=== PATIENT | male | born 1955 | race Caucasian/White ===

== ENCOUNTER 2024-06-08 17:32 | Inpatient (IN) | payer OTHER, SELFPAY ==
[2024-06-08] VITALS (9 sets, daily range): BP systolic 93–119; BP diastolic 62–91; BMI 23.6
[2024-06-08 13:52] LABS: % Basophils 0.4 % (0-2); % Eosinophils 0.4 % (0-6); % Immature Granulocytes 0.5 % (0-0.5); % Lymphocytes 6.1 % (20.5-51.1); % Monocytes 3.1 % (1.7-9.3); % Neutrophils 89.5 % (42.2-75.2); Absolute Lymphocytes 0.5 10^3/uL (1.2-3.4); Absolute Monocytes 0.3 10^3/uL (0.1-0.6); Absolute Neutrophils 7.5 10^3/uL (1.4-6.5); Hematocrit 36.5 % (39.0-52.0); Mean Corp Hgb Conc. 32.9 g/dL (33.0-37.0); Mean Corpuscular Hgb 27.5 pg (27.0-31.0); Mean Corpuscular Volume 83.5 fL (80.0-94.0); Mean Platelet Volume 9.6 fL (7.4-10.4); Nucleated Red Blood Cells % 0 % (-); Platelet Count 285 10^3/uL (130-400); Red Blood Cell Count 4.37 10^6/uL (4.70-6.10); Red Cell Dist. Width 13.5 % (11.5-14.5); White Blood Cell Count 8.4 10^3/uL (4.8-10.8)
--- NOTE | 2024-06-08 13:54 | ED.GENMED ---
History of Present Illness
<Dina Mckeon SAFETY SEALER - Last Filed: 06/08/24 21:27>
General
Chief Complaint: Breathing Problem
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
Exam Limitations: dementia
Time Seen by Provider: 06/08/24 13:47
Nursing documentation reviewed up to this point in time: agreed with
History of Present Illness
History of Present Illness:
68-year-old male with history of dysphagia, seizures, TIA, traumatic brain injury, PE, HTN, HLD, BPH, UTIs, depression from [facility] for reportedly having a pulse ox of 85% on room air. O2 on arrival on 5L O2 NC is 96%. Pt is quiet, in no
distress, denies pain, SOB, cannot say where he is or why he is here.
Past History
<Dina Mckeon, SAFETY SEALER - Last Filed: 06/08/24 21:27>
Past History
ED Past Medical History: CVA (Hemorrhagic with aphasia), HTN, Hypercholesterolemia, Psychiatric (Depression, Psychosis) and Other (anemia, UTI, Brain injury, Chronic embolism,); Negative IDDM
ED Past Surgical History: Other (Unknown)
Social History
Tobacco: Non-smoker
Alcohol: None
Drug: None and Other
Personal: Single
Living: retirement
Employment: Not employed
Family History
Family History: Unable to obtain
Review of Systems
<Dina Mckeon, SAFETY SEALER - Last Filed: 06/08/24 21:27>
Review of Systems
Allergies reviewed?: Yes
Unable to obtain full review of systems at this time due to: other (TBI, aphasia, CVA)
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
All Other Systems: ROS reviewed and negative except as documented in HPI and ROS
Constitutional: Denies fever
Respiratory: Denies trouble breathing
Cardiac: Denies chest pain
ABD/GI: Denies abdominal pain, vomiting or diarrhea
: Reports incontinence; Denies dysuria or difficulty voiding
Musculoskeletal: Reports other (non ambulatory); Denies edema
Neurological: Denies headache
Phy Exam
<Dina Mckeon, SAFETY SEALER - Last Filed: 06/08/24 21:27>
Physical Exam
Physical Exam:
GENERAL: No acute distress. Alert, disoriented, aphasic
CONSTITUTIONAL: Afebrile.
EYES: PERRL, conjunctivae normal
ENMT: moist mucus membranes, Pharynx nl
RESPIRATORY: Regular respirations, nonlabored, lungs clear.
CARDIOVASCULAR: Regular rate and rhythm, no murmurs, no rubs.
GI: Soft, nontender, normal BS
MUSCULOSKELETAL: Bedridden, stiff/boardlike arms and legs/torso, heel protectors on, general muscle wasting and weakness, left foot contracture, no edema. Well perfused.
SKIN: Warm, dry, pale
PSYCH: Depressed mood and affect. Well kept, interactive not oriented to place, year, events
NEUROLOGIC: Awake, alert and oriented x 1. Follows commands, speech clear.
Scores
<Dina Mckeon, SAFETY SEALER - Last Filed: 06/08/24 21:27>
Heart Failure Risk
Heart Failure Risk Score: Not Applicable
Sepsis
<Dina Mckeon, SAFETY SEALER - Last Filed: 06/08/24 21:27>
Sepsis Screening
Sepsis Assessment: Sepsis Ruled Out
Sepsis Screen
Sepsis Screen: Sepsis Ruled Out
Date: 06/08/24
Time: 21:27
Course
<Dina cMkeon, SAFETY SEALER - Last Filed: 06/08/24 21:27>
Orders/Labs/Results
Orders:
Orders
06/08/24 13:30
EKG [Electrocardiogram (*1)] Urgent
Reason for Study: Shortness of Breath
EKG- Treatment ONCE
06/08/24 13:43
COVID-19 Antigen Urgent
Source: Nasal Swab
Complete Blood Count/With Diff Urgent
Comprehensive Metabolic Panel Urgent
INF RAPID [Influenza A+B Rapid Molecular] Urgent
IRINA Source: Nasal Swab
Specimen Description:
06/08/24 13:54
CR Chest - 2 Views Urgent
Comment:
Reason For Exam: reported low O2 at NH
06/08/24 Dinner
Regular
At Your Request: Limited, Bilingual Teacher Assistant Required
06/08/24 16:55
Add On- LAB Urgent
Tests Added?: BNP
Nursing to Place Non Medication Order As Directed
Physician Order: please TT me when d-dimer results
Above order entered?: Yes
06/08/24 16:59
Admit/Transfer Patient As Directed
Co-Sign Provider:
Level of Care: Inpatient admission
Assign to:: Telemetry
Physician / Group: Gillian Barajas
Diagnosis: hypoxia
Reason for Telemetry: Chest Pain syndromes
Date to Stop Telemetry: 06/10/24
Time to Stop Telemetry: 11:00
Reason for Hospitalization: hypoxic respiratory insufficiency
Expected length of stay greater than two midnights?: Yes
ELOS- Estimated Length of Stay in days: 3
I certify the patient meets the requirements for IP care: Yes
06/08/24 17:00
PRN Pain Medication Management As Directed
May give lesser potent ordered pain med per pt: Yes
preference::
Protocol:: Medication orders for pain may be administered in a
manner that supports deferring to patient preference
when the pt is:
- Requesting an ordered lesser potent pain medication.
Least to most potent pain medications are defined
as: acetaminophen < NSAID < tramadol < opioids
(morphine, oxycodone, hydromorphone).
- Requesting a lesser dose of the same medication IF
ORDERED.
- Requesting a less intrusive route of administration
if both routes are prescribed by the provider (PO <
IV).
06/08/24 17:01
Code Status As Directed
Resuscitation Status: Full Code
06/08/24 17:20
D-Dimer Urgent
NT-proBNP Routine
Comment: BNP ADDED ON BY FLOOR 5PM 06-08-24
Procalcitonin Urgent
PCT Algorithmm Indication: Respiratory
Troponin I Q6H
06/08/24 19:24
0.45% Sodium Chloride 1000 ml [0.45%NaCl] 1,000 ml IV 60 mls/hr
Acetaminophen [Tylenol] 650 mg PO Q4HPRN PRN
Atorvastatin [Lipitor] 10 mg PO QPM
Bisacodyl [Dulcolax] 10 mg RECTAL [id number] PRN
Docusate Sodium [Colace] 200 mg PO QPM
Phosphate Enema [Fleet Phosphate Enema-Adult] 135 ml RECTAL DAILYPRN PRN
Tamsulosin [Flomax] 0.4 mg PO QPM
06/08/24 19:24
Activity As Directed
Activity Level: As Tolerated
Vital Signs As Directed
Frequency: Per unit guidelines
Incentive Spirometry [Rx Incentive Spirometry] [RESP] Routine
Frequency: q1h while awake
Rx Incentive Spirometry [RESP] Routine
Frequency: q1h while awake
06/08/24 20:00
Levetiracetam [Keppra] 250 mg PO BID
Levetiracetam [Keppra] 500 mg PO BID
Lorazepam [Ativan] 0.25 mg PO BID
Propranolol [Inderal] 20 mg PO BID
06/08/24 21:00
Apixaban [Eliquis] 2.5 mg PO BID
06/08/24 22:00
Baclofen [Lioresal] 20 mg PO TID
Sennosides [Senokot] 17.2 mg PO HS
06/08/24 23:00
Troponin I Q6H
06/09/24 05:00
Troponin I Q6H
06/09/24 06:00
Echo 2D MMode Color/Doppler IN AM
Reason for Study: hypoxia
Basic Metabolic Panel IN AM
Complete Blood Count/With Diff IN AM
Magnesium IN AM
TSH IN AM
Vitamin B12 IN AM
06/09/24 08:00
Citalopram [Celexa] 20 mg PO DAILY
06/10/24 11:00
DC Protocol for Telemetry ONCE
Abnormal Lab Results
06/08/24
13:43
RBC 4.37 L 10^6/uL
(4.70-6.10)
Hgb 12.0 L g/dL
(13.0-18.0)
Hct 36.5 L %
(39.0-52.0)
MCHC 32.9 L g/dL
(33.0-37.0)
Absolute Neuts (auto) 7.5 H 10^3/uL
(1.4-6.5)
Absolute Lymphs (auto) 0.5 L 10^3/uL
(1.2-3.4)
Neutrophils % 89.5 H %
(42.2-75.2)
Lymphocytes % 6.1 L %
(20.5-51.1)
Sodium 146 H mmol/L
(135-145)
BUN 23 H mg/dl
(9-20)
Creatinine 0.6 L mg/dL
(0.7-1.3)
Glucose 161 H mg/dl
(70-99)
06/08/24 13:43
06/08/24 13:43
Vital Signs
Initial and Last Documented VS:
Initial Vital Signs
Temp Pulse Resp Pulse Ox
99.7 F 85 17 95
06/08/24 13:29 06/08/24 13:29 06/08/24 13:29 06/08/24 13:29
Last Documented Vital Signs
Temp Pulse Resp BP Pulse Ox
99.5 F 83 16 118/75 96
06/08/24 19:48 06/08/24 19:48 06/08/24 19:48 06/08/24 19:48 06/08/24 19:48
<Omar Saini PA-C - Last Filed: 06/08/24 16:13>
Orders/Labs/Results
Orders:
Orders
06/08/24 13:30
EKG [Electrocardiogram (*1)] Urgent
Reason for Study: Shortness of Breath
EKG- Treatment ONCE
06/08/24 13:43
COVID-19 Antigen Urgent
Source: Nasal Swab
Complete Blood Count/With Diff Urgent
Comprehensive Metabolic Panel Urgent
INF RAPID [Influenza A+B Rapid Molecular] Urgent
IRINA Source: Nasal Swab
Specimen Description:
06/08/24 13:54
CR Chest - 2 Views Urgent
Comment:
Reason For Exam: reported low O2 at NH
06/08/24 Dinner
Regular
At Your Request: Limited, Bilingual Teacher Assistant Required
06/08/24 16:55
Add On- LAB Urgent
Tests Added?: BNP
Nursing to Place Non Medication Order As Directed
Physician Order: please TT me when d-dimer results
Above order entered?: Yes
06/08/24 16:59
Admit/Transfer Patient As Directed
Co-Sign Provider:
Level of Care: Inpatient admission
Assign to:: Telemetry
Physician / Group: Gillian Barajas
Diagnosis: hypoxia
Reason for Telemetry: Chest Pain syndromes
Date to Stop Telemetry: 06/10/24
Time to Stop Telemetry: 11:00
Reason for Hospitalization: hypoxic respiratory insufficiency
Expected length of stay greater than two midnights?: Yes
ELOS- Estimated Length of Stay in days: 3
I certify the patient meets the requirements for IP care: Yes
06/08/24 17:00
PRN Pain Medication Management As Directed
May give lesser potent ordered pain med per pt: Yes
preference::
Protocol:: Medication orders for pain may be administered in a
manner that supports deferring to patient preference
when the pt is:
- Requesting an ordered lesser potent pain medication.
Least to most potent pain medications are defined
as: acetaminophen < NSAID < tramadol < opioids
(morphine, oxycodone, hydromorphone).
- Requesting a lesser dose of the same medication IF
ORDERED.
- Requesting a less intrusive route of administration
if both routes are prescribed by the provider (PO <
IV).
06/08/24 17:01
Code Status As Directed
Resuscitation Status: Full Code
06/08/24 17:20
D-Dimer Urgent
NT-proBNP Routine
Comment: BNP ADDED ON BY FLOOR 5PM 06-08-24
Procalcitonin Urgent
PCT Algorithmm Indication: Respiratory
Troponin I Q6H
06/08/24 19:24
0.45% Sodium Chloride 1000 ml [0.45%NaCl] 1,000 ml IV 60 mls/hr
Acetaminophen [Tylenol] 650 mg PO Q4HPRN PRN
Atorvastatin [Lipitor] 10 mg PO QPM
Bisacodyl [Dulcolax] 10 mg RECTAL [id number] PRN
Docusate Sodium [Colace] 200 mg PO QPM
Phosphate Enema [Fleet Phosphate Enema-Adult] 135 ml RECTAL DAILYPRN PRN
Tamsulosin [Flomax] 0.4 mg PO QPM
06/08/24 19:24
Activity As Directed
Activity Level: As Tolerated
Vital Signs As Directed
Frequency: Per unit guidelines
Incentive Spirometry [Rx Incentive Spirometry] [RESP] Routine
Frequency: q1h while awake
Rx Incentive Spirometry [RESP] Routine
Frequency: q1h while awake
06/08/24 20:00
Levetiracetam [Keppra] 250 mg PO BID
Levetiracetam [Keppra] 500 mg PO BID
Lorazepam [Ativan] 0.25 mg PO BID
Propranolol [Inderal] 20 mg PO BID
06/08/24 21:00
Apixaban [Eliquis] 2.5 mg PO BID
06/08/24 22:00
Baclofen [Lioresal] 20 mg PO TID
Sennosides [Senokot] 17.2 mg PO HS
06/08/24 23:00
Troponin I Q6H
06/09/24 05:00
Troponin I Q6H
06/09/24 06:00
Echo 2D MMode Color/Doppler IN AM
Reason for Study: hypoxia
Basic Metabolic Panel IN AM
Complete Blood Count/With Diff IN AM
Magnesium IN AM
TSH IN AM
Vitamin B12 IN AM
06/09/24 08:00
Citalopram [Celexa] 20 mg PO DAILY
06/10/24 11:00
DC Protocol for Telemetry ONCE
Abnormal Lab Results
06/08/24
13:43
RBC 4.37 L 10^6/uL
(4.70-6.10)
Hgb 12.0 L g/dL
(13.0-18.0)
Hct 36.5 L %
(39.0-52.0)
MCHC 32.9 L g/dL
(33.0-37.0)
Absolute Neuts (auto) 7.5 H 10^3/uL
(1.4-6.5)
Absolute Lymphs (auto) 0.5 L 10^3/uL
(1.2-3.4)
Neutrophils % 89.5 H %
(42.2-75.2)
Lymphocytes % 6.1 L %
(20.5-51.1)
Sodium 146 H mmol/L
(135-145)
BUN 23 H mg/dl
(9-20)
Creatinine 0.6 L mg/dL
(0.7-1.3)
Glucose 161 H mg/dl
(70-99)
06/08/24 13:43
06/08/24 13:43
Vital Signs
Initial and Last Documented VS:
Initial Vital Signs
Temp Pulse Resp Pulse Ox
99.7 F 85 17 95
06/08/24 13:29 06/08/24 13:29 06/08/24 13:29 06/08/24 13:29
Last Documented Vital Signs
Temp Pulse Resp BP Pulse Ox
99.5 F 83 16 118/75 96
06/08/24 19:48 06/08/24 19:48 06/08/24 19:48 06/08/24 19:48 06/08/24 19:48
<Dina Mckeon SAFETY SEALER - Last Filed: 06/08/24 21:27>
MDM/Problems Addressed
Differential Diagnosis Includes:
Covid, PNA, URI
MDM/Problems Addressed:
68-year-old male with history of dysphagia, seizures, TIA, traumatic brain injury, PE, HTN, HLD, BPH, UTIs, depression from [facility] point for reportedly having a pulse ox of 85% on room air. O2 on arrival on 5L O2 NC is 96%. Pt is quiet, in no
distress, denies pain, SOB, cannot say where he is or why he is here.
EKG: NSR
Off O2 for 5 minutes O2 dropped to 85% RA, placed back on 5L NC to 95%
Respirations even, non labored
3:15 p.m.
CBC with no clinically significant abnormality
CMP with no clinically significant abnormality
COVID-negative
Flu neg
<Dina Mckeon SAFETY SEALER - Last Filed: 06/08/24 21:27>
*Critical Care Note
Total Time (30-74mins, 75-104mins- exclusive of procedures): Not Applicable
<Omar Saini PA-C - Last Filed: 06/08/24 16:13>
Update Note
Update Note:
Received care of patient upon pending chest x-ray. Chest x-ray reveals hyperinflated lungs with atelectasis. He is coughing throughout my exam. Requiring 4 L of oxygen. He is anticoagulated on Eliquis. Do not suspect PE. Admit to hospital for
hypoxia
ED Attending Note
<Dina Mckeon SAFETY SEALER - Last Filed: 06/08/24 21:27>
-
Portions of this chart may have been created with voice recognition software.� Occasional wrong word or��sound alike� substitutions may have occurred due to the inherent limitations of voice recognition software.
Discharge Plan
Departure
Patient Disposition: Admit
Date of Disposition: 06/08/24
Time of Disposition: 16:13
Admit to: Telemetry
Presentation/result/management discussed w/ accepting MD/DO: Hospitalist
Discharge Problem:
Hypoxia
Interventions
Interventions:
*Risk Screen - Suicide Last Done: 06/08/24 15:05
*General Assessment Last Done: 06/08/24 14:31
*Neglect/Abuse Screening Last Done: 06/08/24 14:31
ED- Fall Risk Assessment Last Done: 06/08/24 19:06
*ED COVID-19 Vaccine History Last Done: 06/08/24 14:31
*Nursing Disposition Last Done: 06/08/24 19:06
ED- Cardiac Assessment Last Done: 06/08/24 14:35
ED- Pulmonary Assessment Last Done: 06/08/24 14:35
Discharge Date and Time
Discharge Date/Time: 06/08/24 19:07
[2024-06-08 14:11] LABS: ALT (SGPT) 24 U/L (0-50); AST (SGOT) 23 U/L (17-59); Albumin 3.7 g/dl (3.5-5.0); Alkaline Phosphatase 65 U/L (38-126); Blood Urea Nitrogen 23 mg/dl (9-20); Calcium 9.2 mg/dl (8.4-10.2); Carbon Dioxide 30 mmol/L (22-30); Chloride 105 mmol/L (98-107); Glucose 161 mg/dl (70-99); Potassium 3.9 mmol/L (3.5-5.1); Sodium 146 mmol/L (135-145); Total Bilirubin 0.6 mg/dl (0.2-1.3); Total Protein 7.1 g/dl (6.3-8.2); eGFR > 60.00
[2024-06-08 14:14] LABS: COVID-19 Antigen Negative (Negative)
--- NOTE | 2024-06-08 16:18 | HPS.HSE ---
Family Physician
-
Family Physician: Jesse Urrutia
Chief Complaint
-
low oxygen
History of Present Illness
Mr. 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
Patient unable to provide elaborate history. He states everything hurts and he has felt short of breath for a while.
Medical History
Past Medical History
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
Past Surgical History: Reports Other
Social History
Unable to obtain full social history at this time due to: Other (patient with aphasia )
Family History
Family History: Not pertinent
Allergies / Home Medications
Allergies reflects when Allergies were last updated in [facility].
Home Medications with original date entered in [facility]
Allergy/Medication List:
Allergies
Allergy/AdvReac Type Severity Reaction Status Date / Time
basil Allergy Unknown Verified 04/18/20 12:37
iodine Allergy Unknown Verified 04/18/20 12:37
shellfish derived Allergy Unknown Verified 04/18/20 12:37
Home Medications
atorvastatin 10 mg tablet 10 mg PO QPM High cholesterol 04/24/15
bisacodyl 10 mg rectal suppository (OneLAX Bisacodyl) 10 mg MD DAILYPRN PRN if MOM ineffective in 24h 04/24/15
docusate sodium 100 mg capsule 200 mg PO QPM Constipation 04/24/15
magnesium hydroxide 400 mg/5 mL oral suspension 30 ml PO [id number] PRN no bm in 3 days 04/24/15
tamsulosin 0.4 mg capsule 0.4 mg PO QPM Urinary issue 04/24/15
apixaban 2.5 mg tablet (Eliquis) 2.5 mg PO BID Blood clot prevention/tx 06/11/19
acetaminophen 325 mg tablet 650 mg PO Q4HPRN PRN mild pain/temp>100 03/11/20
baclofen 20 mg tablet 20 mg PO TID Muscle spasms 03/11/20
citalopram 20 mg tablet 20 mg PO DAILY Depression 03/11/20
sennosides 8.6 mg tablet (senna) 2 tab PO HS Gastrointestinal issue 03/11/20
levetiracetam 500 mg tablet 500 mg PO BID 03/15/20
emollient combination no.119 (Eucerin Advanced Repair topical cream) 1 applic topical DAILY dry skin 06/08/24
levetiracetam 250 mg tablet 250 mg PO BID 06/08/24
lorazepam 0.5 mg tablet 0.25 mg PO BID 06/08/24
propranolol 20 mg tablet 20 mg PO BID 06/08/24
pyrithione zinc 1 % shampoo 1 applic topical WESA 06/08/24
sodium phosphates 19 gram-7 gram/118 mL enema (Fleet Enema) 118 ml MD DAILYPRN PRN if dulcolax ineffective after 24 hrs 06/08/24
Review of Systems
-
History Source: Patient
A 12 point ROS was completed and negative except as noted: Yes
Physical Exam
Vital Signs
Vital Signs
Temp Pulse Resp BP Pulse Ox
99.7 F 61 14 93/62 96
06/08/24 13:29 06/08/24 15:30 06/08/24 15:30 06/08/24 15:00 06/08/24 15:30
Physical Exam
General: Other (patient frail appearing, mildly diaphoretic and tachypneic )
HEENT: PERRLA
Respiratory: Other (decreased breath sounds at bases ); No Wheezes
Cardiac: S1/S2 and Regular Rhythm
GI: Soft and Non Tender
Musculoskeletal: No Edema and Other (contractures )
Neuro: Awake and Alert; No Oriented
Psych: Calm
Laboratory Results
-
06/08/24 13:43
06/08/24 13:43
Laboratory Results
Total Bilirubin 0.6 mg/dl (0.2-1.3) 06/08/24 13:43
AST 23 U/L (17-59) 06/08/24 13:43
ALT 24 U/L (0-50) 06/08/24 13:43
Alkaline Phosphatase 65 U/L (38-126) 06/08/24 13:43
Data Reviewed
-
Diagnostic Radiology: Report Reviewed by me
Lab Data: Labs Reviewed by me
Impression/Plan
-
Mr. 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
Triage VS: T 99.7, P 85, RR 17, SpO2 95%
LABS: WBC 8.4, Hg 12.0, PLT 285, Na 146, K+ 3.9, BUN 23, Cr 0.6, Glucose 161, liver enzymes WNL
covid nevative
CXR
IMPRESSION:
Both lungs appear hypoinflated. Parenchymal opacity both lower lungs, likely atelectasis.
Hypoxic Respiratory Insufficiency
-unclear etiology; CXR with hypoinflation; atelectasis likely contributing. Patient with hx PE, he is on Eliquis low dose for prophylaxis.
-Will obtain d-dimer, pro-thalia, BNP, Troponin
-TTE tomorrow
-admit to telemetry
-O2 support as needed
-IS
-no wheezing on exam
-if above not revealing, may require pulmonary consult
Hx TBI
Hx CVA
Functional Quadriplegia
Expressive Aphasia
-EMPLOYMENT INSTRUCTIONAL ASSOCIATE lipitor
-EMPLOYMENT INSTRUCTIONAL ASSOCIATE Baclofen
Hx PE
-EMPLOYMENT INSTRUCTIONAL ASSOCIATE Eliquis, work-up as above
Seizures
-EMPLOYMENT INSTRUCTIONAL ASSOCIATE Keppra
BPH
-EMPLOYMENT INSTRUCTIONAL ASSOCIATE Flomax
Anxiety/Depression
-EMPLOYMENT INSTRUCTIONAL ASSOCIATE Ativan, Citalopram, Propranolol
Constipation
-EMPLOYMENT INSTRUCTIONAL ASSOCIATE Regimen
DVT PPx Eliquis
FULL CODE
76 MINUTES spent on patient care
[2024-06-08 17:43] LABS: D-Dimer 0.34 ug/mlFEU (0.00-0.50)
[2024-06-08 17:55] LABS: NT-proBNP 185 pg/ml; Troponin I < 0.012 ng/ml
[2024-06-08 18:05] LABS: Procalcitonin < 0.05 ng/ml (0.0-0.25)
--- NOTE | 2024-06-08 20:00 | PTCARENOTE ---
Received pt from ED via stretcher. Telemetry orders> Sinus Rhythm on monitor, T 99.5, HR 83, RR 16, BP 118/75, pox 96% 5LNC. No c/o pain.
Pt grossly incontinent- CC #30 placed. Tubigrips removed from B/L LEs for skin assessment. Multi scab and opens areas that appear to be from scratching. Heels intact, booties in place. Pt's buttocks blanchable red w/ scratches. Barrier ointment
applied, placed on Q2T. Tubigrips removed from pt's arms, intact. PMH history and medications obtained from fpc report. Bed alarm in place.
[2024-06-08] MEDS: 0.45%NACL 1000 IV (20:10)
[2024-06-08] MEDS: FLOMAX 0.4 MG PO (21:31)
[2024-06-08] MEDS: KEPPRA 250 MG PO (21:31)
[2024-06-08] MEDS: LIPITOR 10 MG PO (21:31)
[2024-06-08] MEDS: ATIVAN 0.25 MG PO (21:36)
[2024-06-08] MEDS: ELIQUIS 2.5 MG PO (21:37)
[2024-06-08] MEDS: KEPPRA 500 MG PO (21:37)
[2024-06-08] MEDS: COLACE 200 MG PO (21:37)
[2024-06-08] MEDS: INDERAL 20 MG PO (21:37)
[2024-06-08] MEDS: SENOKOT 17.2 MG PO (21:38)
[2024-06-08] MEDS: LIORESAL 20 MG PO (21:47)
[2024-06-09 03:31] VITALS: BP 109/76
[2024-06-09 07:00] VITALS: BP 107/64
[2024-06-09 08:09] LABS: % Basophils 0.2 % (0-2); % Eosinophils 1.7 % (0-6); % Immature Granulocytes 0.6 % (0-0.5); % Lymphocytes 14.2 % (20.5-51.1); % Monocytes 3.8 % (1.7-9.3); % Neutrophils 79.5 % (42.2-75.2); Absolute Eosinophils 0.2 10^3/uL (0-0.7); Absolute Immature Granulocytes 0.1 10^3/uL (0-0.05); Absolute Lymphocytes 1.3 10^3/uL (1.2-3.4); Absolute Monocytes 0.3 10^3/uL (0.1-0.6); Hematocrit 32.6 % (39.0-52.0); Hemoglobin 10.4 g/dL (13.0-18.0); Mean Corp Hgb Conc. 31.9 g/dL (33.0-37.0); Mean Corpuscular Hgb 27.2 pg (27.0-31.0); Mean Corpuscular Volume 85.1 fL (80.0-94.0); Mean Platelet Volume 9.7 fL (7.4-10.4); Nucleated Red Blood Cells % 0 % (-); Platelet Count 249 10^3/uL (130-400); Red Blood Cell Count 3.83 10^6/uL (4.70-6.10); Red Cell Dist. Width 13.7 % (11.5-14.5); White Blood Cell Count 8.8 10^3/uL (4.8-10.8)
[2024-06-09] MEDS: KEPPRA 500 MG PO ×2 (08:26→19:49)
[2024-06-09] MEDS: KEPPRA 250 MG PO ×2 (08:26→19:49)
[2024-06-09] MEDS: CELEXA 20 MG PO (08:26)
[2024-06-09] MEDS: ELIQUIS 2.5 MG PO ×2 (08:26→19:48)
[2024-06-09] MEDS: ATIVAN 0.25 MG PO ×2 (08:26→19:50)
[2024-06-09] MEDS: INDERAL 20 MG PO ×2 (08:27→19:48)
[2024-06-09] MEDS: LIORESAL 20 MG PO ×3 (08:29→21:47)
[2024-06-09 09:13] LABS: Blood Urea Nitrogen 18 mg/dl (9-20); Calcium 8.5 mg/dl (8.4-10.2); Carbon Dioxide 29 mmol/L (22-30); Chloride 104 mmol/L (98-107); Estimated Creatinine Clearance 99 ml/min; Glucose 88 mg/dl (70-99); Magnesium 1.9 mg/dl (1.6-2.3); Potassium 3.6 mmol/L (3.5-5.1); Sodium 142 mmol/L (135-145); eGFR > 60.00
[2024-06-09 09:41] LABS: TSH 1.06 uIU/ml (0.47-4.68)
--- NOTE | 2024-06-09 09:54 | W.PN.HOSP.TC ---
Today's Communication/Plan
-
O2 being weaned down, suspect aspiration event? awaiting ST Eval
awaiting TTE
IS as able (cognitive impairment makes difficult)
Assessment / Plan
Assessment / Plan
Mr. Gerald London is a 68 yo man, [place] resident at 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
CXR
IMPRESSION:
Both lungs appear hypoinflated. Parenchymal opacity both lower lungs, likely atelectasis.
Hypoxic Respiratory Insufficiency
-unclear etiology; CXR with hypoinflation; atelectasis likely contributing; concern also for aspiration event? no wheezing on exam; Patient with hx PE, he is on Eliquis low dose for prophylaxis and d-dimer negative. BNP low. Troponin negative and
procal negative
-Oxygen supplementation weaned overnight
-F/U TTE
-F/U ST Eval
-continue to wean O2 as able
Hx TBI
Hx CVA
Functional Quadriplegia
Expressive Aphasia
-ARCHITECT INTERN lipitor
-ARCHITECT INTERN Baclofen
Hx PE
-ARCHITECT INTERN Eliquis
Seizures
-ARCHITECT INTERN Keppra
BPH
-ARCHITECT INTERN Flomax
Anxiety/Depression
-ARCHITECT INTERN Ativan, Citalopram, Propranolol
Constipation
-ARCHITECT INTERN Regimen
DVT PPx Eliquis
FULL CODE
51 minutes spent on patient care
*attempted to get in touch with contacts in chart and no answer
Anticipated Discharge: 24 - 48 hours
Subjective/Interval History
-
Date of Service: June 09, 2024
no new complaints
denies pain
states he's feeling better
Objective Data
-
Labs:
Laboratory Results
06/09/24
07:17
WBC 8.8
Hgb 10.4 L
Hct 32.6 L
Plt Count 249
Sodium 142
Potassium 3.6
Chloride 104
Carbon Dioxide 29
BUN 18
Creatinine 0.4 L
Glucose 88
Calcium 8.5
Vital Signs:
Vital Signs
Temp Pulse Resp BP Pulse Ox
98.4 F 59 16 109/76 98
06/09/24 07:00 06/09/24 07:00 06/09/24 07:00 06/09/24 08:27 06/09/24 07:00
I&O
06/08/24 06/09/24 06/10/24
06:59 06:59 06:59
Intake Total 1140 / 1140
Balance 1140 / 1140
Review of Systems
-
Unable to obtain full review of systems at this time due to: Other (expressive aphasia - baseline )
History Source: Patient
Physical Exam
-
General: No Apparent Distress and Appears Chronically Ill
HEENT: PERRLA
Respiratory: Clear to Auscultation; Negative Wheezes
Cardiac: S1/S2
GI: Soft and Nontender
Musculoskeletal: No Edema and Other (contractures )
Skin: Warm and Dry; Negative Rash
Neuro: Awake, Alert and Other (able to answer simple short answers; + expressive aphasia )
Psych: Calm
Data Reviewed
-
Diagnostic Radiology: Report Reviewed by me
Labs: Labs Reviewed by me
[2024-06-09 10:00] LABS: Vitamin B12 700 pg/ml (239-931)
[2024-06-09 11:00] VITALS: BP 98/63
--- NOTE | 2024-06-09 11:24 | PTOTSP ---
ST Acute Care Evaluation
Pt currently presents with clinical symptoms of mild oropharyngeal dysphagia characterized by impulsivity with reduced insight to deficits and safety precautions resulting in taking large bites/sips and rapid intake prior to completing prior intake,
prolonged mastication, reduced bolus formation requiring liquid aid, and audible aerophagia indicative of possibly reduced breathing/swallowing coordination. Although no overt s/s of penetration or aspiration were noted at bedside during this
evaluation, pt is at an elevated risk due to his clinical signs of oral apraxia, reduced cognitive linguistic function, reduced insight to deficits, as well as reduced ability to monitor self and/or implement safety precautions independently.
Recommendations:
- DOWNGRADE to SOFT BITE SIZED SOLIDS and continue with THIN LIQUIDS - SINGLE SIPS; meds whole in puree.
- Aspiration precautions: FULL SUPERVISION with all PO intake; fully awake, alert, and upright for all PO intake; small bites - finish each bite prior to taking a new bite; single sips - do not let him chug his drinks; alternate solids/liquids; slow
rate of intake.
- HOUSEHOLD REFRIGERATION MECHANIC to f/u re: diet tolerance and airway protection as well as to determine whether pt would benefit from an instrumental swallow study.
- Consider investigating baseline cognitive linguistic function to ensure pt is currently at baseline.
--- NOTE | 2024-06-09 14:08 | PTCARENOTE ---
attempt to wean oxygen to RA, Patient O2 sat 85% on RA nad pt c/o of SOB. 1L NC placed with O2 sat. 92% will continue to monitor.
[2024-06-09 15:00] VITALS: BP 99/60
--- NOTE | 2024-06-09 15:12 | CM ---
Pt is a LTC resident from [facility].
Per nurse, Freddy/Shannan, pt is total care and stays in his geriatric chair w/ cushion to prevent him from falling forward. Pt also has kavon lift.
Pt does not feed himself. He is considered a feeder per Freddy
Due to pt's physical limitations from stroke, his responses are delayed when communicating, not necessarily confused. This is pt's BL per Freddy
Freddy declines home O2. Currently on 2L in hospital
Per pt he had OP rehab at [facility] in the past
Plan: Return to [facility]
CM will cont. following for d/c needs
--- NOTE | 2024-06-09 16:00 | PTCARENOTE ---
patient had 10 beat run of VTACH. pt resting in bed. asymptomatic. MD Barajas notified. no new orders at this time. will continue to monitor.
[2024-06-09] MEDS: LIPITOR 10 MG PO (17:11)
[2024-06-09] MEDS: COLACE 200 MG PO (17:11)
[2024-06-09] MEDS: FLOMAX 0.4 MG PO (17:11)
[2024-06-09 19:50] VITALS: BP 105/57
[2024-06-09] MEDS: SENOKOT 17.2 MG PO ×2 (21:47)
[2024-06-09 23:16] VITALS: BP 111/59
[2024-06-10 03:33] VITALS: BP 107/61
[2024-06-10 06:59] LABS: % Basophils 0.4 % (0-2); % Eosinophils 3.5 % (0-6); % Immature Granulocytes 0.2 % (0-0.5); % Lymphocytes 19.5 % (20.5-51.1); % Neutrophils 69.4 % (42.2-75.2); Absolute Eosinophils 0.2 10^3/uL (0-0.7); Absolute Monocytes 0.4 10^3/uL (0.1-0.6); Absolute Neutrophils 3.6 10^3/uL (1.4-6.5); Hematocrit 32.7 % (39.0-52.0); Hemoglobin 10.8 g/dL (13.0-18.0); Mean Corpuscular Hgb 28.6 pg (27.0-31.0); Mean Corpuscular Volume 86.5 fL (80.0-94.0); Mean Platelet Volume 9.7 fL (7.4-10.4); Nucleated Red Blood Cells % 0 % (-); Platelet Count 232 10^3/uL (130-400); Red Blood Cell Count 3.78 10^6/uL (4.70-6.10); Red Cell Dist. Width 13.5 % (11.5-14.5); White Blood Cell Count 5.2 10^3/uL (4.8-10.8)
[2024-06-10 07:00] VITALS: BP 105/65
[2024-06-10 07:24] LABS: Blood Urea Nitrogen 15 mg/dl (9-20); Calcium 8.5 mg/dl (8.4-10.2); Carbon Dioxide 29 mmol/L (22-30); Chloride 101 mmol/L (98-107); Estimated Creatinine Clearance 99 ml/min; Glucose 93 mg/dl (70-99); Magnesium 1.9 mg/dl (1.6-2.3); Sodium 140 mmol/L (135-145); eGFR > 60.00
[2024-06-10] MEDS: ELIQUIS 2.5 MG PO (08:21)
[2024-06-10] MEDS: CELEXA 20 MG PO (08:21)
[2024-06-10] MEDS: ATIVAN 0.25 MG PO (08:21)
[2024-06-10] MEDS: KEPPRA 500 MG PO (08:22)
[2024-06-10] MEDS: LIORESAL 20 MG PO ×2 (08:22→17:12)
[2024-06-10] MEDS: KEPPRA 250 MG PO (08:22)
[2024-06-10] MEDS: INDERAL PO ×2 (08:31→21:20)
[2024-06-10 10:55] VITALS: BP 94/54
--- NOTE | 2024-06-10 11:29 | CM ---
Chart reviewed. Pt currently 1L O2, cont. to wean
Referral to [facility] completed. Pt is LTC resident there
Awaiting JANINE
[facility]
Report: [phone]

Plan: Return to [facility]
--- NOTE | 2024-06-10 11:33 | CM ---
Addendum entered by Agustín Mahmood 06/10/24 12:22:
TTE results ok, pt is off O2
Hospitalist cleared pt for d/c today
CM spoke w/ Afsaneh/[facility] informing of d/c today, Afsaneh agreeable
Ambulance forms on chart, will await time
Plan: Return to [facility] LTC via ambulance
Original Note:
Chart reviewed. Pt currently 1L O2, cont. to wean
Referral to [facility] completed. Pt is LTC resident there
Awaiting TTE
Will need ambulance transport
[facility]
Report: [phone]

Plan: Return to [facility]
--- NOTE | 2024-06-10 11:48 | W.PN.HOSP.TC ---
Today's Communication/Plan
-
OK for DC today
Assessment / Plan
Assessment / Plan
Mr. Gerald London is a 68 yo man, [place] resident at 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
CXR
IMPRESSION:
Both lungs appear hypoinflated. Parenchymal opacity both lower lungs, likely atelectasis.
TTE
CONCLUSIONS
Left ventricle is small in size. Mild concentric left ventricular hypertrophy.
Normal left ventricular systolic function. LV ejection fraction is 63% by
volumetric assessment. Diastolic function indeterminate.
Mitral valve opens normally. Mildly thickened mitral valve leaflets. Mitral
annular calcification. Mild mitral regurgitation.
Indexed LA volume is moderately abnormal (42-48 mL/m2).
Trileaflet aortic valve. Aortic sclerosis without stenosis. No aortic
regurgitation is seen.
Hypoxic Respiratory Insufficiency
- no wheezing on exam; Patient with hx PE, he is on Eliquis low dose for prophylaxis and d-dimer negative. BNP low. Troponin negative and procal negative
-CXR with hypoinflation; atelectasis likely contributing; concern also for aspiration event - modified diet recommended. patient is now on room air.
-TTE OK - results above
-OK for DC on modified diet
Hx TBI
Hx CVA
Functional Quadriplegia
Expressive Aphasia
-FAMILY SUPPORT SPECIALIST lipitor
-FAMILY SUPPORT SPECIALIST Baclofen
Hx PE
-FAMILY SUPPORT SPECIALIST Eliquis
Seizures
-FAMILY SUPPORT SPECIALIST Keppra
NSVT in setting of normal EF - asymptomatic, continue beta-sana
BPH
-FAMILY SUPPORT SPECIALIST Flomax
Anxiety/Depression
-FAMILY SUPPORT SPECIALIST Ativan, Citalopram, Propranolol
Constipation
-FAMILY SUPPORT SPECIALIST Regimen
DVT PPx Eliquis
FULL CODE
51 minutes spent on patient care
*attempted to get in touch with contacts in chart and no answer
Anticipated Discharge: Today
Subjective/Interval History
-
Date of Service: June 10, 2024
he is off oxygen
no new complaints
feels ready to go home today
Objective Data
-
Labs:
Laboratory Results
06/10/24
05:55
WBC 5.2
Hgb 10.8 L
Hct 32.7 L
Plt Count 232
Sodium 140
Potassium 4.0
Chloride 101
Carbon Dioxide 29
BUN 15
Creatinine 0.5 L
Glucose 93
Calcium 8.5
Vital Signs:
Vital Signs
Temp Pulse Resp BP Pulse Ox
98.7 F 68 18 94/54 95
06/10/24 10:55 06/10/24 10:55 06/10/24 10:55 06/10/24 10:55 06/10/24 10:55
I&O
06/09/24 06/10/24 06/11/24
06:59 06:59 06:59
Intake Total 1140 / 1140 1680 / 1680
Output Total 1150 / 1150
Balance 1140 / 1140 530 / 530
Review of Systems
-
History Source: Patient
All other systems: Reviewed and negative
Physical Exam
-
General: No Apparent Distress and Appears Chronically Ill
HEENT: PERRLA
Respiratory: Clear to Auscultation; Negative Wheezes
Cardiac: S1/S2
GI: Soft and Nontender
Musculoskeletal: No Edema and Other (contractures )
Skin: Warm and Dry; Negative Rash
Neuro: Awake, Alert and Other (able to answer simple short answers; + expressive aphasia )
Psych: Calm
Data Reviewed
-
Diagnostic Radiology: Report Reviewed by me
Labs: Labs Reviewed by me
--- NOTE | 2024-06-10 12:07 | W.DS.TRANS ---
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
-
Discharge Instructions:
Discharge Diagnosis/Procedures hypoxia secondary to atelectasis and aspiration
pneumonitis
Additional Diets - DOWNGRADE to SOFT BITE SIZED SOLIDS and
continue with THIN LIQUIDS - SINGLE SIPS; meds
whole in puree.
- Aspiration precautions: FULL SUPERVISION with
all PO intake; fully awake, alert, and upright
for all PO intake; small bites - finish each
bite prior to taking a new bite; single sips -
do not let him chug his drinks; alternate solids
/liquids; slow rate of intake.
Activity As tolerated
Driving Restrictions No driving
Bathing Restrictions None
Other Services ST
Instructions:
Stand-Alone Forms:
Changes to Home Medications: No
Discharge Medications:
DC Medications w/original date entered in [facility]
atorvastatin 10 mg tablet 10 mg PO QPM High cholesterol 04/24/15
bisacodyl 10 mg rectal suppository (OneLAX Bisacodyl) 10 mg [place] DAILYPRN PRN if MOM ineffective in 24h 04/24/15
docusate sodium 100 mg capsule 200 mg PO QPM Constipation 04/24/15
magnesium hydroxide 400 mg/5 mL oral suspension 30 ml PO [id number] PRN no bm in 3 days 04/24/15
tamsulosin 0.4 mg capsule 0.4 mg PO QPM Urinary issue 04/24/15
apixaban 2.5 mg tablet (Eliquis) 2.5 mg PO BID Blood clot prevention/tx 06/11/19
acetaminophen 325 mg tablet 650 mg PO Q4HPRN PRN mild pain/temp>100 03/11/20
baclofen 20 mg tablet 20 mg PO TID Muscle spasms 03/11/20
citalopram 20 mg tablet 20 mg PO DAILY Depression 03/11/20
sennosides 8.6 mg tablet (senna) 2 tab PO HS Gastrointestinal issue 03/11/20
levetiracetam 500 mg tablet 500 mg PO BID 03/15/20
emollient combination no.119 (Eucerin Advanced Repair topical cream) 1 applic topical DAILY dry skin 06/08/24
levetiracetam 250 mg tablet 250 mg PO BID Neurological Condition 06/08/24
propranolol 20 mg tablet 20 mg PO BID Heart Disease/Condition 06/08/24
pyrithione zinc 1 % shampoo 1 applic topical WESA Skin Issues 06/08/24
sodium phosphates 19 gram-7 gram/118 mL enema (Fleet Enema) 118 ml AZ DAILYPRN PRN if dulcolax ineffective after 24 hrs 06/08/24
lorazepam 0.5 mg tablet 0.25 mg (1/2 x 0.5 mg) PO BID Mental Health/Anxiety #10 tabs 06/10/24
Home Medication Changes
Pending Results: No
--- NOTE | 2024-06-10 14:52 | W.DCSUMMARY ---
Addendum entered and electronically signed by Gillian Barajas MD 06/12/24 07:19:
Corrected date of discharge: 06/11/24
Original Note:
Discharge Summary
Discharge Data
Date of Admission: 06/08/24
Date of Discharge: 06/10/24
-
Pending Results: No
Hospital Course
Discharging Physician : Dr. Gillian Barajas
Disposition : Penitentiary
Primary care physician : Dr. Jesse Urrutia
Principal Discharge diagnosis : Aspiration Pneumonitis; hypoxic respiratory insufficiency
Hospital Course :
Mr. 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
presentation. CXR with atelectasis. D-dimer negative, BNP low and procal negative. He was admitted overnight with etiology of hypoxia thought 2/2 possible aspiration pneumonitis with atelectasis contributing. Worked with ST and modified diet
(small and bite size) recommended. His oxygen was weaned off over the next 48 hours. He is discharged back to [facility] with these recommendations.
Time spent on discharge was 35 minutes.
Important imaging findings :
TTE
CONCLUSIONS
Left ventricle is small in size. Mild concentric left ventricular hypertrophy.
Normal left ventricular systolic function. LV ejection fraction is 63% by
volumetric assessment. Diastolic function indeterminate.
Mitral valve opens normally. Mildly thickened mitral valve leaflets. Mitral
annular calcification. Mild mitral regurgitation.
Indexed LA volume is moderately abnormal (42-48 mL/m2).
Trileaflet aortic valve. Aortic sclerosis without stenosis. No aortic
regurgitation is seen.
Procedure findings :
Discharge Plan
-
Patient Disposition: Penitentiary/SNF
Discharge Diagnosis/Procedures: hypoxia secondary to atelectasis and aspiration pneumonitis
Additional Diets: - DOWNGRADE to SOFT BITE SIZED SOLIDS and continue with THIN LIQUIDS - SINGLE SIPS; meds whole in puree.
- Aspiration precautions: FULL SUPERVISION with all PO intake; fully awake, alert, and upright for all PO intake; small bites - finish each bite prior to taking a new bite; single sips - do not let him chug his drinks; alternate solids/liquids; slow
rate of intake.
Activity: As tolerated
Driving Restrictions: No driving
Bathing Restrictions: None
Other Services: ST
Referrals:
Jesse Urrutia I., DO [Family Provider] - in less than 1 week
Prescriptions:
Continued
atorvastatin 10 MG tablet
10 mg PO QPM
magnesium hydroxide 30 ML suspension
30 ml PO [id number] PRN (Reason: no bm in 3 days)
tamsulosin 0.4 MG capsule
0.4 mg PO QPM
bisacodyl [OneLAX Bisacodyl] 10 MG suppository
10 mg CA DAILYPRN PRN (Reason: if MOM ineffective in 24h)
docusate sodium 100 MG capsule
200 mg PO QPM
Eliquis 2.5 MG tablet
2.5 mg PO BID
acetaminophen 325 MG tablet
650 mg PO Q4HPRN PRN (Reason: mild pain/temp>100)
sennosides [senna] 1 TABLET tablet
2 tab PO HS
baclofen 20 MG tablet
20 mg PO TID
citalopram 20 MG tablet
20 mg PO DAILY
levetiracetam 500 MG tablet
500 mg PO BID 0RF
Rx Instructions:
take with 250mg for total of 500mg
levetiracetam 250 mg Tablet
250 mg PO BID
Rx Instructions:
take with 500 mg for total of 750mg
Fleet Enema 19-7 gram/118 mL Enema
118 ml CA DAILYPRN PRN (Reason: if dulcolax ineffective after 24 hrs)
pyrithione zinc 1 % Shampoo
1 applic TOPICAL WESA
propranolol 20 mg Tablet
20 mg PO BID
Eucerin Advanced Repair Cream
1 applic TOPICAL DAILY
Patient Comments:
06/08/24: on arms/legs/face/chest/back
lorazepam 0.5 mg Tablet
0.25 mg PO BID Qty: 10 0RF
Discharge Orders:
Discharge Patient (As Directed); Ordered 06/10/24
Ordered By: Gillian Barajas
Discharge Date and Time
Print Language: FRENCH
[2024-06-10 14:56] VITALS: BP 103/63
[2024-06-10] MEDS: FLOMAX 0.4 MG PO (17:11)
[2024-06-10] MEDS: COLACE 200 MG PO (17:11)
[2024-06-10] MEDS: LIPITOR 10 MG PO (17:12)
--- NOTE | 2024-06-10 18:00 | PTCARENOTE ---
at approximately 1730 this evening display card writer attempted to give pt his pm meds in applesauce before he was discharged back to facility. when i went to give him his applesauce he would not swallow and was pocketing. display card writer had to suction it out of mouth.
he also is making continuous grunting noise and has occasional cough. MD notified. discharge canceled, xray ordered and pt to be observed overnight and be reevaluated by speech in morning.
--- NOTE | 2024-06-10 18:17 | W.PN.UPDATE ---
Update Note
Progress Note Update
patient with coughing post apple sauce given with meds and appears more diaphoretic, remains on room air. will send for CXR and observe overnight, have ST re-eval tomorrow.
[2024-06-10 19:00] VITALS: BP 121/83
[2024-06-10 21:05] LABS: Glucose - Point of Care 106 mg/dl (70-99)
[2024-06-10] MEDS: ATIVAN PO (21:19)
--- NOTE | 2024-06-10 21:19 | PTCARENOTE ---
CXR came back showing 'Low lung volumes. Stable mild bibasilar atelectasis'. Pt diaphoretic, blood sugar 106, temp 98.3. Hamida Montez notified. No new orders obtained. Will continue with current plan.
[2024-06-10] MEDS: KEPPRA PO ×2 (21:20)
[2024-06-10] MEDS: ELIQUIS PO (21:20)
[2024-06-10] MEDS: LIORESAL PO (21:20)
[2024-06-10] MEDS: NSS (PRESERVATIVE FREE) 0.125 ML IV (21:21)
[2024-06-10] MEDS: ATIVAN 0.25 MG IV (21:21)
[2024-06-10] MEDS: KEPPRA 500 MG IV (21:24)
[2024-06-10 23:00] VITALS: BP 125/61
[2024-06-11 03:00] VITALS: BP 126/73
[2024-06-11 07:30] VITALS: BP 127/77
[2024-06-11] MEDS: ATIVAN 0.25 MG PO (08:10)
[2024-06-11] MEDS: KEPPRA 250 MG PO (08:11)
[2024-06-11] MEDS: INDERAL 20 MG PO (08:11)
[2024-06-11] MEDS: CELEXA 20 MG PO (08:11)
[2024-06-11] MEDS: KEPPRA 500 MG PO (08:14)
[2024-06-11] MEDS: LIORESAL 20 MG PO ×2 (08:14→15:21)
[2024-06-11] MEDS: ELIQUIS 2.5 MG PO (08:15)
[2024-06-11 08:24] LABS: % Basophils 0.5 % (0-2); % Eosinophils 2.9 % (0-6); % Immature Granulocytes 0.3 % (0-0.5); % Lymphocytes 23.7 % (20.5-51.1); % Monocytes 7.8 % (1.7-9.3); % Neutrophils 64.8 % (42.2-75.2); Absolute Eosinophils 0.1 10^3/uL (0-0.7); Absolute Lymphocytes 0.9 10^3/uL (1.2-3.4); Absolute Monocytes 0.3 10^3/uL (0.1-0.6); Absolute Neutrophils 2.5 10^3/uL (1.4-6.5); Hematocrit 34.7 % (39.0-52.0); Hemoglobin 11.3 g/dL (13.0-18.0); Mean Corp Hgb Conc. 32.6 g/dL (33.0-37.0); Mean Corpuscular Volume 86.1 fL (80.0-94.0); Mean Platelet Volume 9.8 fL (7.4-10.4); Nucleated Red Blood Cells % 0 % (-); Platelet Count 243 10^3/uL (130-400); Red Blood Cell Count 4.03 10^6/uL (4.70-6.10); Red Cell Dist. Width 13.3 % (11.5-14.5); White Blood Cell Count 3.8 10^3/uL (4.8-10.8)
[2024-06-11 09:10] LABS: Blood Urea Nitrogen 14 mg/dl (9-20); Calcium 8.6 mg/dl (8.4-10.2); Carbon Dioxide 28 mmol/L (22-30); Chloride 102 mmol/L (98-107); Estimated Creatinine Clearance 99 ml/min; Glucose 98 mg/dl (70-99); Potassium 3.7 mmol/L (3.5-5.1); Sodium 140 mmol/L (135-145); eGFR > 60.00
--- NOTE | 2024-06-11 09:41 | PTOTSP ---
ST Follow-Up
Pt continues to present with clinical symptoms of mild oropharyngeal dysphagia characterized by impulsivity with reduced insight to deficits and safety precautions resulting in taking large bites/sips and rapid intake prior to completing prior
intake, prolonged mastication, reduced bolus formation requiring liquid aid, audible aerophagia indicative of possibly reduced breathing/swallowing coordination, and strong cough with thin liquids today 1x and with pureed solids yesterday with meds.
Pt is at an elevated risk due to his clinical signs of oral apraxia, reduced cognitive linguistic function, reduced insight to deficits, as well as reduced ability to monitor self and/or implement safety precautions independently.
Recommendations:
- CONTINUE with SOFT BITE SIZED SOLIDS and continue with THIN LIQUIDS - SINGLE SIPS; meds CRUSHED in puree.
- Aspiration precautions: FULL SUPERVISION with all PO intake; fully awake, alert, and upright for all PO intake; small bites - finish each bite prior to taking a new bite; single sips - do not let him chug his drinks; alternate solids/liquids; slow
rate of intake.
- MUSIC GRAPHER to f/u re: diet tolerance and airway protection as well as to determine whether pt would benefit from an instrumental swallow study.
- Consider investigating baseline cognitive linguistic function to ensure pt is currently at baseline.
--- NOTE | 2024-06-11 11:00 | W.PN.HOSP.TC ---
Addendum entered and electronically signed by Gillian Barajas MD 06/12/24 07:48:
Acute Hypoxic respiratory failure
-resolved prior to discharge
Original Note:
Today's Communication/Plan
-
OK for DC
Assessment / Plan
Assessment / Plan
Mr. Gerald London is a 68 yo man, [place] resident at 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
CXR
IMPRESSION:
Both lungs appear hypoinflated. Parenchymal opacity both lower lungs, likely atelectasis.
TTE
CONCLUSIONS
Left ventricle is small in size. Mild concentric left ventricular hypertrophy.
Normal left ventricular systolic function. LV ejection fraction is 63% by
volumetric assessment. Diastolic function indeterminate.
Mitral valve opens normally. Mildly thickened mitral valve leaflets. Mitral
annular calcification. Mild mitral regurgitation.
Indexed LA volume is moderately abnormal (42-48 mL/m2).
Trileaflet aortic valve. Aortic sclerosis without stenosis. No aortic
regurgitation is seen.
Hypoxic Respiratory Insufficiency
- no wheezing on exam; Patient with hx PE, he is on Eliquis low dose for prophylaxis and d-dimer negative. BNP low. Troponin negative and procal negative
-CXR with hypoinflation; atelectasis likely contributing; concern also for aspiration event - modified diet recommended. patient is now on room air.
-TTE OK - results above
-episode of pocketing food on 06/10; no resulting hypoxia and CXR unchanged - cough now resolved; reseen by ST this AM without change in recommendations --> OK for DC
-OK for DC on modified diet
Hx TBI
Hx CVA
Functional Quadriplegia
Expressive Aphasia
-REAL ESTATE SALES AGENT lipitor
-REAL ESTATE SALES AGENT Baclofen
Hx PE
-REAL ESTATE SALES AGENT Eliquis
Seizures
-REAL ESTATE SALES AGENT Keppra
NSVT in setting of normal EF - asymptomatic, continue beta-sana
BPH
-REAL ESTATE SALES AGENT Flomax
Anxiety/Depression
-REAL ESTATE SALES AGENT Ativan, Citalopram, Propranolol
Constipation
-REAL ESTATE SALES AGENT Regimen
DVT PPx Eliquis
FULL CODE
51 minutes spent on patient care
*attempted to get in touch with contacts in chart and no answer
Anticipated Discharge: Today
Subjective/Interval History
-
Date of Service: June 11, 2024
no new complaints
took meds OK this morning per RN
Objective Data
-
Labs:
Laboratory Results
06/11/24
06:15
WBC 3.8 L
Hgb 11.3 L
Hct 34.7 L
Plt Count 243
Sodium 140
Potassium 3.7
Chloride 102
Carbon Dioxide 28
BUN 14
Creatinine 0.4 L
Glucose 98
Calcium 8.6
Vital Signs:
Vital Signs
Temp Pulse Resp BP Pulse Ox
98.0 F 67 16 127/77 92
06/11/24 07:30 06/11/24 08:11 06/11/24 07:30 06/11/24 08:11 06/11/24 07:30
I&O
06/10/24 06/11/24 06/12/24
06:59 06:59 06:59
Intake Total 1680 / 1680 720 / 720
Output Total 1150 / 1150 475 / 475
Balance 530 / 530 245 / 245
Review of Systems
-
History Source: Patient
All other systems: Reviewed and negative
Physical Exam
-
General: No Apparent Distress and Appears Chronically Ill
HEENT: PERRLA
Respiratory: Clear to Auscultation; Negative Wheezes
Cardiac: S1/S2
GI: Soft and Nontender
Musculoskeletal: No Edema and Other (contractures )
Skin: Warm and Dry; Negative Rash
Neuro: Awake, Alert and Other (able to answer simple short answers; + expressive aphasia )
Psych: Calm
Data Reviewed
-
Diagnostic Radiology: Report Reviewed by me
Labs: Labs Reviewed by me
--- NOTE | 2024-06-11 11:24 | CM ---
Per hospitalist, pt stable for d/c today
CM made Afsaneh/[facility]aque[facility] aware
Ambulance transport requested, awaiting time
Updated clinicals sent to facility via [facility]- LTC
Report: [phone]

Plan: Return to LTC facility via ambulance
--- NOTE | 2024-06-11 11:27 | PN.CDI ---
CDI
- -
CDI:
Physician Documentation Request
Admit Date: 06/08/24 17:32
Dear Doctor Jenn,
Please review the following and provide your response in the progress notes.
Clinical Indicators:
Pt admitted with Hypoxia / Atelectasis and possible Aspiration Pneumonitis
Documented per ED, ' ...[facility] for reportedly having a pulse ox of 85% on room air. O2 on arrival on 5L O2 NC is 96%....Off O2 for 5 minutes O2 dropped to 85% RA, placed back on 5L NC to 95%...'
Documented per H&P, ' Patient unable to provide elaborate history. He states everything hurts and he has felt short of breath for a while. ...patient frail appearing, mildly diaphoretic and tachypneic )...Respiratory: Other (decreased breath
sounds at bases )...'
Respirations as high as 38
Per EMS HR as high as 105, SPO2 88% placed on 4 LPM
Clarify which of the following accurately represents the patient's respiratory status:
Acute Hypoxic respiratory failure
Hypoxia-only
Other
Additional information for Respiratory Failure:
Recognized criteria for Respiratory Failure (Source: [facility] Hospitalist Jun 2013)
ABGs: (1 or more) Symptoms Please indicate type if known
1. p)2 <60 or RA SPO2 <91% on RA 1. Tachypnea, SOB, dyspnea Hypoxic
2. pCO2 50 and pH <7.35 2. Use of accessory muscles Hypercapnic
3. pO2 decrease of pCO2 increase by 3. Pallor or cyanosis Hypoxic and Hypercapnic
10 mmHg from baseline if known 4. Anxiety or restlessness Unable to determine
5. Unable to speak in full sentences
Supplemental O2 of > 40% (5LPM) Intubation is not required
Use of terms such as suspected, likely, concern for, or probable (associated with a specific diagnosis that is being evaluated, monitored, or treated as if it exists) are acceptable and can be coded in the inpatient setting, when documented at the
time of discharge.
Thank you,
Dilcia Torres RN
CDI Specialist
[place] [facility]
Please use your independent medical judgment in providing your response.
[2024-06-11 11:31] VITALS: BP 117/75
[2024-06-11 15:18] VITALS: BP 122/66
[2024-06-11] MEDS: COLACE 200 MG PO (17:27)
[2024-06-11] MEDS: LIPITOR 10 MG PO (17:28)
[2024-06-11] MEDS: FLOMAX 0.4 MG PO (17:28)
== END 2024-06-11 18:34 | DRG 177 ==
LOC: 4 WEST ACU 17:32
PROVIDERS: Nurse Practitioner Gerontology; ADMITTING PHYSICIAN Student in an Organized Health Care Education/Training Program; EMERGENCY PHYSICIAN Emergency Medicine; FAMILY PHYSICIAN Internal Medicine
DX: J69.0 Pneumonitis due to inhalation of food and vomit (principal); J96.01 Acute respiratory failure with hypoxia; R53.2 Functional quadriplegia; J98.11 Atelectasis; Z11.52 Encounter for screening for COVID-19; R56.9 Unspecified convulsions; Z86.711 Personal history of pulmonary embolism; N40.0 Benign prostatic hyperplasia without lower urinary tract symptoms; F32.A Depression, unspecified; K59.00 Constipation, unspecified
CPT/HCPCS: 71046; 80048; 80053; 82607; 82962; 83735; 83880; 84145; 84443; 84484; 85025; 85379; 87502; 87811; 92526; 92610; 93005; 93306; 99285

== ENCOUNTER 2024-07-30 14:12 | Emergency (ER) | payer OTHER, MEDICARE, SELFPAY ==
[2024-07-30] VITALS (11 sets, daily range): BP systolic 96–136; BP diastolic 66–83; BMI 24.4
[2024-07-30 14:53] LABS: % Basophils 0.5 % (0-2); % Eosinophils 2.8 % (0-6); % Immature Granulocytes 0.4 % (0-0.5); % Lymphocytes 14.2 % (20.5-51.1); % Monocytes 8.5 % (1.7-9.3); % Neutrophils 73.6 % (42.2-75.2); Absolute Eosinophils 0.2 10^3/uL (0-0.7); Absolute Lymphocytes 1.2 10^3/uL (1.2-3.4); Absolute Monocytes 0.7 10^3/uL (0.1-0.6); Absolute Neutrophils 6.2 10^3/uL (1.4-6.5); Hematocrit 44.7 % (39.0-52.0); Hemoglobin 13.5 g/dL (13.0-18.0); Mean Corp Hgb Conc. 30.2 g/dL (33.0-37.0); Mean Corpuscular Hgb 27.3 pg (27.0-31.0); Mean Corpuscular Volume 90.3 fL (80.0-94.0); Mean Platelet Volume 10.8 fL (7.4-10.4); Nucleated Red Blood Cells % 0 % (-); Platelet Count 208 10^3/uL (130-400); Red Blood Cell Count 4.95 10^6/uL (4.70-6.10); Red Cell Dist. Width 14.1 % (11.5-14.5); White Blood Cell Count 8.4 10^3/uL (4.8-10.8)
--- NOTE | 2024-07-30 14:54 | ED.GENMED ---
History of Present Illness
General
Chief Complaint: Change in Mental Status
Source: care home
Time Seen by Provider: 07/30/24 14:45
History of Present Illness
History of Present Illness:
68-year-old male sent to the emergency room from care home where the staff felt the patient was not acting himself. Staff also reported the patient had a low pulse ox. On arrival here to the emergency room the patient is somewhat uncooperative
with blood drawl and nursing evaluation but is clearly suffering from cognitive impairment. When I evaluated the patient after nursing interventions the patient is more calm. He is clearly confused. He offers no complaints however and denies
chest pain, abdominal pain, nausea.
Past History
Past History
ED Past Medical History: CVA (Hemorrhagic with aphasia), HTN, Hypercholesterolemia, Psychiatric (Depression, Psychosis) and Other (anemia, UTI, Brain injury, Chronic embolism,); Negative IDDM
ED Past Surgical History: Other (Unknown)
Social History
Tobacco: Non-smoker
Alcohol: None
Drug: None and Other
Personal: Single
Living: care home
Employment: Not employed
Family History
Family History: Unable to obtain
Phy Exam
Physical Exam
Physical Exam:
General: Awake, Alert, Oriented to person only. Appears chronically ill
Vitals: Low-grade temperature of 100.9 via rectal temp
Head: Atraumatic
Eyes: Pupils equal, EOMI
Throat: Airway intact, no exudates
Neck: Trachea midline
Lungs: Clear and equal b/l
Heart: Regular rate, no murmurs
Abd: Soft, Nontender, No pulsatile mass
Neuro: Baseline left hemiplegia
Skin: Warm, dry, no rash
Extremities: pulses equal b/l, no edema
Sepsis
Sepsis Screening
Sepsis Assessment: Sepsis Ruled Out
Sepsis Screen
Sepsis Screen: Sepsis Ruled Out
Date: 07/30/24
Time: 19:55
Course
Orders/Labs/Results
Orders:
Orders
07/30/24 14:42
CXR2 [CR Chest - 2 Views ] Urgent
Comment:
Reason For Exam: shortness of breath
07/30/24 14:44
COVID-19 Antigen Urgent
Source: Nasal Swab
Complete Blood Count/With Diff Urgent
Comprehensive Metabolic Panel Urgent
Lactic Acid Urgent
Urinalysis Reflex To Culture Urgent
Date Specimen was Collected: 07/30/24
Time Specimen was Collected: 14:42
Urine Microscopic Reflex Cult Urgent
Influenza A+B Rapid Molecular Urgent
IR[place] Source: Nasal Swab
Specimen Description:
Date Specimen was Collected: 07/30/24
Time Specimen was Collected: 14:42
Urine Culture Urgent
IRINA Source: U
Specimen Description:
Date Specimen was Collected: 07/30/24
Time Specimen was Collected: 14:42
Abnormal Lab Results
07/30/24
14:44
MCHC 30.2 L g/dL
(33.0-37.0)
MPV 10.8 H fL
(7.4-10.4)
Absolute Monos (auto) 0.7 H 10^3/uL
(0.1-0.6)
Lymphocytes % 14.2 L %
(20.5-51.1)
Sodium 149 H mmol/L
(135-145)
Carbon Dioxide 32 H mmol/L
(22-30)
BUN 29 H mg/dl
(9-20)
Creatinine 0.6 L mg/dL
(0.7-1.3)
Glucose 132 H mg/dl
(70-99)
Lactic Acid 2.8 H mmol/L
(0.7-2.0)
Leukocyte Esterase Rfl Trace A
(Negative)
Urine Bacteria (Reflex) Moderate A
(Negative)
Urine Albumin (Reflex) 1+ A
(Neg - Trace)
07/30/24 14:44
07/30/24 14:44
Vital Signs
Initial and Last Documented VS:
Initial Vital Signs
Temp Pulse Resp BP Pulse Ox
100.9 F H 87 30 136/71 98
07/30/24 14:35 07/30/24 14:35 07/30/24 14:35 07/30/24 14:35 07/30/24 14:35
Last Documented Vital Signs
Temp Pulse Resp BP Pulse Ox
99.0 F 70 25 117/81 96
07/30/24 15:58 07/30/24 19:00 07/30/24 19:00 07/30/24 19:00 07/30/24 19:00
MDM/Problems Addressed
Differential Diagnosis Includes:
UTI, viral illness, pneumonia, dehydration, symptoms of dementia
MDM/Problems Addressed:
Workup here reveals no evidence of a significant infection. Chest x-ray is unremarkable. Urine is unremarkable. COVID and influenza test are negative. Suspect nonspecific viral illness. Patient stable for discharge back to his facility.
*Radiology
Radiology exam reviewed: preliminary read by ED provider (No acute abnormalities noted on my review of the patient's chest x-ray)
*Pulse Oximetry
Patient hypoxic: no
*Critical Care Note
Total Time (30-74mins, 75-104mins- exclusive of procedures): Not Applicable
ED Attending Note
-
Portions of this chart may have been created with voice recognition software.� Occasional wrong word or��sound alike� substitutions may have occurred due to the inherent limitations of voice recognition software.
Discharge Plan
Departure
Patient Disposition: [facility]/SNF
Date of Disposition: 07/30/24
Time of Disposition: 17:30
Condition: Good
Discharge Problem:
Dementia with agitation
Instructions: Altered Mental Status (DC)
Prescriptions:
No Action
atorvastatin 10 MG tablet
10 mg PO QPM
magnesium hydroxide 30 ML suspension
30 ml PO [id number] PRN (Reason: no bm in 3 days)
tamsulosin 0.4 MG capsule
0.4 mg PO QPM
bisacodyl [OneLAX Bisacodyl] 10 MG suppository
10 mg [place] DAILYPRN PRN (Reason: if MOM ineffective in 24h)
docusate sodium 100 MG capsule
200 mg PO HS
Eliquis 2.5 MG tablet
2.5 mg PO BID
acetaminophen 325 MG tablet
650 mg PO Q4HPRN PRN (Reason: mild pain/temp>100)
sennosides [senna] 1 TABLET tablet
2 tab PO HS
baclofen 20 MG tablet
20 mg PO TID
citalopram 20 MG tablet
20 mg PO DAILY
levetiracetam 250 mg Tablet
750 mg PO BID
Rx Instructions:
take with 500 mg for total of 750mg
Fleet Enema 19-7 gram/118 mL Enema
118 ml [place] DAILYPRN PRN (Reason: if dulcolax ineffective after 24 hrs)
pyrithione zinc 1 % Shampoo
1 applic TOPICAL WESA
propranolol 20 mg Tablet
20 mg PO BID
Eucerin Advanced Repair Cream
1 applic TOPICAL DAILY
Rx Instructions:
arms/legs/face/chest/back
lorazepam 0.5 mg Tablet
0.25 mg PO BID Qty: 10 0RF
Referrals:
Jesse Urrutia I., DO [Family Provider] -
Interventions
Interventions:
*Risk Screen - Suicide Last Done: 07/30/24 14:35
*General Assessment Last Done: 07/30/24 14:35
*Neglect/Abuse Screening Last Done: 07/30/24 14:35
ED- Fall Risk Assessment Last Done: 07/30/24 14:35
*ED COVID-19 Vaccine History Last Done: 07/30/24 14:35
ED- Pulmonary Assessment Last Done: 07/30/24 14:35
ED- Neurological Assessment Last Done: 07/30/24 14:35
ED- Cardiac Assessment Last Done: 07/30/24 14:35
ED Swallowing Screen Last Done: 07/30/24 14:35
Discharge Date and Time
Print Language: VINCENTIAN
[2024-07-30 15:07] LABS: ALT (SGPT) 27 U/L (0-50); AST (SGOT) 29 U/L (17-59); Albumin 4.1 g/dl (3.5-5.0); Alkaline Phosphatase 59 U/L (38-126); Blood Urea Nitrogen 29 mg/dl (9-20); Calcium 9.1 mg/dl (8.4-10.2); Carbon Dioxide 32 mmol/L (22-30); Chloride 107 mmol/L (98-107); Estimated Creatinine Clearance > 125 ml/min; Glucose 132 mg/dl (70-99); Potassium 4.8 mmol/L (3.5-5.1); Sodium 149 mmol/L (135-145); Total Bilirubin 0.8 mg/dl (0.2-1.3); Total Protein 7.8 g/dl (6.3-8.2); eGFR > 60.00
[2024-07-30 15:08] LABS: Lactic Acid 2.8 mmol/L (0.7-2.0)
[2024-07-30 15:16] LABS: Urine Albumin 1+ (Neg - Trace); Urine Bilirubin Negative (Negative); Urine Character Clear (Clear); Urine Color Yellow; Urine Glucose Negative (Negative); Urine Ketone Negative (Negative); Urine Leukocyte Trace (Negative); Urine Nitrite Negative (Negative); Urine Occult Blood Negative (Negative); Urine Specific Gravity 1.025 (<1.030); Urine Urobilinogen Negative (Neg - 1+)
[2024-07-30 15:22] LABS: COVID-19 Antigen Negative (Negative)
[2024-07-30 15:55] LABS: Urine Mucus Many; Urine Red Blood Cell 0-2 /HPF (0-2); Urine Squamous Cell 0-2 /LPF (Few)
[2024-07-30 15:56] LABS: Urine Bacteria Moderate (Negative)
--- NOTE | 2024-07-30 17:36 | EDRN ---
this RN called [facility] at [phone] and gave verbal report to the receiving nurse and notified the nurse that the pt was going to be sent back
== END 2024-07-30 21:04 ==
LOC: EMR 14:12
PROVIDERS: EMERGENCY PHYSICIAN Emergency Medicine; FAMILY PHYSICIAN Internal Medicine
DX: F03.911 Unspecified dementia, unspecified severity, with agitation (principal); I10 Essential (primary) hypertension; E78.00 Pure hypercholesterolemia, unspecified; I69.920 Aphasia following unspecified cerebrovascular disease; Z87.440 Personal history of urinary (tract) infections
CPT/HCPCS: 99284; 71046; 80053; 81003; 81015; 83605; 85025; 87086; 87502; 87811

== ENCOUNTER 2025-02-19 07:04 | Emergency (ER) | payer OTHER, SELFPAY ==
[2025-02-19 07:05] VITALS: BP 118/54
[2025-02-19 07:09] VITALS: BP 118/54
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
[2025-02-19 10:00] VITALS: BP 112/93
== END 2025-02-19 10:21 | disposition home or self-care (01) ==
LOC: EMR 07:04
PROVIDERS: EMERGENCY PHYSICIAN Emergency Medicine; FAMILY PHYSICIAN Internal Medicine
DX: S62.326A Displaced fracture of shaft of fifth metacarpal bone, right hand, initial encounter for closed fracture (principal); S62.614A Displaced fracture of proximal phalanx of right ring finger, initial encounter for closed fracture; X58.XXXA Exposure to other specified factors, initial encounter; F03.93 Unspecified dementia, unspecified severity, with mood disturbance; E78.00 Pure hypercholesterolemia, unspecified; I69.820 Aphasia following other cerebrovascular disease; I10 Essential (primary) hypertension
CPT/HCPCS: 29125; 99283; 73130